=== PATIENT | male | born 1925 | race Caucasian/White ===

== ENCOUNTER → 2017-04-12 | Outpatient (CLI) | payer MEDICARE, OTHER ==
[~2017-04-12] MED LIST: ASPIR-TRIN325 MG PO; HUMULIN N100 UNITS/ SC; LISINOPRIL 20MG20 MG PO; MACROBID 100MG100 MG PO; MECLIZINE 25MG25 MG PO; METFORMIN1000 MG PO; METOPROLOL SUCC25 M1 PO; PRADAXA150 MG PO; PRAVASTATIN20 MG PO; VITAMIN D32000 I2 PO; XALATAN 0.2.5 ML/BOT IO
[2017-04-12 10:48] LABS: BUN 22 mg/dL (7-18)
[2017-04-12 10:55] LABS: GFR (ESTIMATED) 70 ML/MIN (>60)
[2017-04-13 10:40] LABS: Creatinine, Urine 64.6 mg/dL (Not Estab.); Microalbumin, Urine 54.1 ug/mL (Not Estab.)
== END ==
LOC: LAB 07:42
PROVIDERS: Family Medicine
DX: E11.9 Type 2 diabetes mellitus without complications (principal); I10 Essential (primary) hypertension; E78.00 Pure hypercholesterolemia, unspecified